=== PATIENT | female | born 1940 | race Caucasian/White ===

== ENCOUNTER 2025-06-05 12:53 | Emergency (ER) | payer OTHER, MEDICARE ==
[2025-06-05] MEDS ORDERED: KETOROLAC 30 MG/ML INJ ONE (13:29)
[2025-06-05] MEDS ORDERED: HYDROCODONE/APAP 5/325 MG TAB ONE (13:30)
--- NOTE | 2025-06-05 15:15 | RAD REPORT ---
EXAM: Knee Left 3 View INDICATION: PAIN COMPARISON: None FINDINGS: Possible nondisplaced patellar fracture. Left knee arthroplasty. No significant knee effusion. No significant focal degenerative changes. Other: N/A IMPRESSION: Possible nondisplaced mid patellar fracture. Correlate with mechanism of injury and site of pain. CT could confirm. Intact left knee arthroplasty. Prominent soft tissue swelling at the medial aspect of the knee. No significant knee effusion.
--- NOTE | 2025-06-05 15:16 | RAD REPORT ---
EXAMINATION: Forearm Left VIEWS: Three views CLINICAL INDICATION: Female, 84 years old. PAIN COMPARISON: No prior exam. IMPRESSION: Buckling along the radial neck concerning for an nondisplaced radial neck fracture. Plate and screw at the distal radius. No hardware application.
--- NOTE | 2025-06-05 15:17 | RAD REPORT ---
EXAM: Chest Single View HISTORY: 84 years Female PAIN COMPARISON: No prior exams FINDINGS: LUNGS/PLEURA: Left basilar airspace disease. CARDIAC/MEDIASTINUM: The cardiac silhouette is within normal limits. Moderate to large hiatal hernia. UPPER ABDOMEN: No significant abnormality. BONES: No acute abnormality. LINES/TUBES/OTHER: N/A IMPRESSION: Airspace disease at left lung base could reflect pneumonia or possibly atelectasis as a result of the moderate to large hiatal hernia.
--- NOTE | 2025-06-05 16:14 | ER ---
Nurse's Notes [facility] Name: Sil Jasso Age: 84 yrs Sex: Female : 1940 Arrival Date: 06/05/2025 Time: 12:53 Bed 6 Private MD: Diagnosis: Congenital hiatus hernia-Hiatal Hernia;Nondisplaced fracture of neck of left radius, initial encounter for closed fracture Presentation: 06/05 13:18 Chief complaint: Patient states: tripped and fell in the garage approximately 1hr ago, aa5 was unable to get up from the floor and called her family for help. Pt c/o skin tear to left FA and eduarda knee pain. Bruising noted to left knee and small laceration noted to right knee. No bleeding at this time. Denies head injury, denies LOC. 13:18 Coronavirus screen: At this time, the client does not indicate any symptoms associated aa5 with coronavirus-19. Ebola Screen:. Initial Sepsis Screen: Does the patient meet any 2 criteria? No. Patient's initial sepsis screen is negative. Does the patient have a suspected source of infection? No. Patient's initial sepsis screen is negative. Risk Assessment: Do you want to hurt yourself or someone else? Patient reports no desire to harm self or others. Onset of symptoms was June 05, 2025. 13:18 Method Of Arrival: Ambulatory aa5 13:18 Acuity: BONNIE 3 aa5 Historical: - Allergies: 13:21 PENICILLINS; aa5 - PMHx: 13:21 Asthma; Hypertensive disorder; Hypercholesterolemia; aa5 13:21 Thyroid disease; Osteoporosis; leg swelling; aa5 - PSHx: 13:21 eduarda knee replacement; aa5 - Immunization history:: Adult Immunizations unknown, Last tetanus immunization: unknown. - Infectious Disease History:: Denies. - Social history:: Smoking status: Patient denies any tobacco usage or history of. Screenin:22 [facility] ED Fall Risk Assessment (Adult) History of falling in the last 3 months, dd2 including since admission Yes- single mechanical fall (1 pt) Confusion or Disorientation No (0 pts) Intoxicated or Sedated No (0 pts) Impaired Gait No (0 pts) Mobility Assist Device Used No (0 pt) Altered Elimination No (0 pt) Score/Fall Risk Level 0 - 2 = Low Risk Oriented to surroundings, Maintained a safe environment, Educated pt \T\ family on fall prevention, incl call for assistance when getting out of bed, Assessed \T\ reinforced patient's understanding of fall precautions, Hourly rounding (assess needs \T\ fall precautionary measures) done. Abuse screen: Denies threats or abuse. Denies injuries from another. Nutritional screening: No deficits noted. Tuberculosis screening: No symptoms or risk factors identified. Assessment: 14:22 General: Appears in no apparent distress. uncomfortable, Behavior is calm, cooperative, dd2 appropriate for age. Pain: Complains of pain in palmar aspect of left wrist, dorsal aspect of left forearm, palmar aspect of left forearm and right knee and left leg and left knee Pain currently is 7 out of 10 on a pain scale. Neuro: No deficits noted. Level of Consciousness is awake, alert, obeys commands, Oriented to person, place, time, situation, Appropriate for age. Cardiovascular: No deficits noted. Respiratory: No deficits noted. GI: No deficits noted. No signs and/or symptoms were reported involving the gastrointestinal system. : No deficits noted. No signs and/or symptoms were reported regarding the genitourinary system. EENT: No deficits noted. No signs and/or symptoms were reported regarding the EENT system. Derm: Wound noted palmar aspect of left forearm, rt knee Reports pain that is 7 out of 10 on a pain scale. Derm: Bruising that is dark purple, on left knee. Musculoskeletal: Circulation, motion, and sensation intact. Range of motion: intact in all extremities, Reports pain in palmar aspect of left wrist, dorsal aspect of left forearm and right knee and left leg and left knee. Vital Signs: 13:18 BP 145 / 102; Pulse 86; Resp 19 S; Temp 98.2(O); Pulse Ox 96% on R/A; aa5 14:29 BP 144 / 78; Pulse 65; Resp 16; Pulse Ox 99% on R/A; dd2 16:53 BP 132 / 77; Pulse 66; Resp 16; Pulse Ox 99% on R/A; dd2 [place] Coma Score: 14:22 Eye Response: spontaneous(4). Motor Response: obeys commands(6). Verbal Response: dd2 oriented(5). Total: 15. ED Course: 13:00 Patient arrived in ED. ts1 13:05 Rusty Galicia FNP-C is [facility]. dr5 13:05 Ronal Robin MD is Attending Physician. dr5 13:18 Arm band placed on. aa5 13:21 Triage completed. aa5 14:22 Patient has correct armband on for positive identification. Bed in low position. Call dd2 light in reach. Side rails up X 1. Client placed on continuous cardiac and pulse oximetry monitoring. NIBP monitoring applied. Door closed. Noise minimized. Warm blanket given. Pillow given. Verbal reassurance given. 14:22 No provider procedures requiring assistance completed. Patient maintains SpO2 dd2 saturation greater than 95% on room air. 15:10 Knee Left 3 View XRAY In Process Unspecified. EDMS 15:10 Forearm Left XRAY In Process Unspecified. EDMS 15:10 Chest Single View XRAY In Process Unspecified. EDMS 16:12 Patient did not have IV access during this emergency room visit. Jose wrap to left knee dd2 Orthoglass splint: posterior long arm splint applied to the left arm. Wound care: to SKIN TEAR located on left arm was cleaned with with NS, dressed with 4X4s, Patient tolerated well. 16:53 Provided Education on: D/C EDUCATION. dd2 Administered Medications: 13:35 Drug: Ketorolac IM 30 mg IM once Route: IM; Site: right deltoid; aa5 14:00 Follow up: Response: No adverse reaction dd2 13:35 Drug: HYDROcodone-acetaminophen PO 5 mg-325 mg 2 tabs PO once Route: PO; aa5 14:00 Follow up: Response: No adverse reaction dd2 Medication: 16:53 VIS not applicable for this client. dd2 Outcome: 16:13 Discharge ordered by . dr5 16:53 Discharged to home via wheelchair, with family, dd2 16:53 Condition: improved 16:53 Discharge instructions given to patient, Instructed on discharge instructions, follow up and referral plans. medication usage, SPLINT CARE Demonstrated understanding of instructions, follow-up care, medications, splint care, Prescriptions given X 2, 16:57 Patient left the ED. dd2 Signatures: Dispatcher [employer] EDHoa Bray RN RN aa5 Shantelle Cruz PAS PAS ts1 ROSALINA MEZA RN RN dd2 Galicia, Rusty, LICENSED NURSING ASSISTANT-C LICENSED NURSING ASSISTANT-Cdr5
--- NOTE | 2025-06-05 16:14 | EDPHYS ---
Physician Documentation [facility] Name: Sil Jasso Age: 84 yrs Sex: Female : 1940 Arrival Date: 06/05/2025 Time: 12:53 Bed 6 Private MD: ED Physician oRnal Robin HPI: 06/05 13:49 This 84 yrs old Female presents to ER via Ambulatory with complaints of Fall dr5 Injury, Arm Injury, Knee Injury. 13:49 Details of fall: The patient fell from an upright position, while standing. Onset: The dr5 symptoms/episode began/occurred just prior to arrival. Patient is an 84-year-old female with history of asthma, hypertension, hyperlipidemia, thyroid disease, osteoporosis coming in with trip and fall that occurred in garage 1 hour prior to arrival. Patient reports that she fell on her left knee and also injured her left forearm. Patient denies hitting her head, denies dizziness, and denies loss of consciousness.. Historical: - Allergies: 13:21 PENICILLINS; aa5 - PMHx: 13:21 Asthma; Hypertensive disorder; Hypercholesterolemia; aa5 13:21 Thyroid disease; Osteoporosis; leg swelling; aa5 - PSHx: 13:21 eduarda knee replacement; aa5 - Immunization history:: Adult Immunizations unknown, Last tetanus immunization: unknown. - Infectious Disease History:: Denies. - Social history:: Smoking status: Patient denies any tobacco usage or history of. ROS: 13:49 Constitutional: as per hpi dr5 Exam: 13:49 Constitutional: This is a well developed, well nourished patient who is awake, alert, dr5 and in no acute distress. Head/Face: Normocephalic, atraumatic. Eyes: Pupils equal round and reactive to light, extra-ocular motions intact. Lids and lashes normal. Conjunctiva and sclera are non-icteric and not injected. Cornea within normal limits. Periorbital areas with no swelling, redness, or edema. Neck: Trachea midline, no thyromegaly or masses palpated, and no cervical lymphadenopathy. Supple, full range of motion without nuchal rigidity, or vertebral point tenderness. No Meningismus. Chest/axilla: Normal chest wall appearance and motion. Nontender with no deformity. No lesions are appreciated. Cardiovascular: Regular rate and rhythm with a normal S1 and S2. Normal PMI, no JVD. No pulse deficits. Respiratory: Lungs have equal breath sounds bilaterally, clear to auscultation. No rales, rhonchi or wheezes noted. No increased work of breathing, no retractions or nasal flaring. Back: No spinal tenderness. No costovertebral tenderness. Full range of motion. Skin: Warm, dry with normal turgor. Normal color with no rashes, no lesions, and no evidence of cellulitis. Patient has skin tears to right knee as well as posterior left forearm. Neuro: Awake and alert, GCS 15, oriented to person, place, time, and situation. Cranial nerves II-XII grossly intact. Motor strength 5/5 in all extremities. Sensory grossly intact. Cerebellar exam normal. Normal gait. 13:49 Musculoskeletal/extremity: Extremities: grossly normal except: noted in the left knee: swelling, tenderness, ROM: no acute changes, intact in all extremities, Circulation is intact in all extremities. Sensation intact. Vital Signs: 13:18 BP 145 / 102; Pulse 86; Resp 19 S; Temp 98.2(O); Pulse Ox 96% on R/A; aa5 14:29 BP 144 / 78; Pulse 65; Resp 16; Pulse Ox 99% on R/A; dd2 16:53 BP 132 / 77; Pulse 66; Resp 16; Pulse Ox 99% on R/A; dd2 [place] Coma Score: 14:22 Eye Response: spontaneous(4). Motor Response: obeys commands(6). Verbal Response: dd2 oriented(5). Total: 15. Procedures: 16:29 Splinting: Splint applied to left arm using Orthoglass splint, sling, Posterior Long dr5 Elbow. applied by tech. Examined by me, post splint application: neurovascular intact, 2+ distal pulses palpable, brisk capillary refill noted, Patient tolerated well. 16:29 Splinting: Splint applied to left knee using jose wrap, applied by tech. Examined by me, dr5 post splint application: neurovascular intact, 2+ distal pulses palpable, brisk capillary refill noted, Patient tolerated well. MDM: 13:05 Medical Screening Exam initiated dr5 16:29 Differential diagnosis: abrasion, contusion, fracture, sprain, strain. Data reviewed: dr5 vital signs, nurses notes, radiologic studies, plain films. Consideration of Admission/Observation Escalation of care including admission/observation considered. Escalation considered patient found to have infection.. I considered the following discharge prescriptions or medication management in the emergency department I discussed and recommended Over The Counter medications, Medications were administered in the Emergency Department. See MAR. Historians other than the Patient: Daughter/Son: Daughter. Care significantly affected by the following chronic conditions: Hypertension, hyperlipidemia, thyroid disease, osteoporosis, asthma. Care significantly affected by the following Social Determinants of Health: Poor access to healthcare and/or lack of insurance, Poor access to transportation, Problems related to employment. Counseling: I had a detailed discussion with the patient and/or guardian regarding the historical points, exam findings, and any diagnostic results supporting the discharge/admit diagnosis, the presence of at least one elevated blood pressure reading (>120/80) during this emergency department visit, radiology results, the need for outpatient follow up, for definitive care, a orthopedic surgeon, to return to the emergency department if symptoms worsen or persist or if there are any questions or concerns that arise at home. Medication response: Toradol markedly relieved the patient's pain, [place]. Response to treatment: the patient's symptoms have markedly improved after treatment. Special discussion: I have referred the patient to see his PCP for further evaluation of high blood pressure. I discussed with the patient/guardian in detail that at this point there is no indication for admission to the hospital. It is understood, however, that if the symptoms persist or worsen the patient needs to return immediately for re-evaluation. Based on the history and exam findings, there is no indication for further emergent testing or inpatient evaluation. I discussed with the patient/guardian the need to see the orthopedic surgeon for further evaluation of the symptoms. ED course: CD and x-ray reports printed and given to patient. Will give patient antibiotics for possible pneumonia, pain medicine for fracture. Patient reports she will see her orthopedic doctor in [place] on Saturday. All questions answered. Strict ER precautions given.. 06/05 13: Order name: Knee Left 3 View XRAY; Complete Time: 15:28 aa5 06/05 13:26 Order name: Forearm Left XRAY; Complete Time: 15:28 aa5 06/05 13:26 Order name: Chest Single View XRAY; Complete Time: 15:28 06/05 15:31 Order name: Jose Wrap; Complete Time: 16:12 dr5 06/05 15:31 Order name: Posterior Elbow Splint; Complete Time: 16:12 dr5 06/05 16:14 Order name: Sling; Complete Time: 16:19 dr5 Administered Medications: 13:35 Drug: Ketorolac IM 30 mg IM once Route: IM; Site: right deltoid; aa5 14:00 Follow up: Response: No adverse reaction dd2 13:35 Drug: HYDROcodone-acetaminophen PO 5 mg-325 mg 2 tabs PO once Route: PO; aa5 14:00 Follow up: Response: No adverse reaction dd2 Disposition: 17:23 Co-signature as Attending Physician, Ronal Robin MD I reviewed the patient's care rn provided by the Advanced Practice Provider and agree with the diagnosis and treatment plan. Disposition Summary: 06/05/25 16:13 Discharge Ordered Notes: Location: Home dr5 Condition: Stable dr5 Diagnosis - Congenital hiatus hernia - Hiatal Hernia dr5 - Nondisplaced fracture of neck of left radius, initial encounter for closed fracture dr5 Followup: dr5 - With: Emergency Department - When: As needed - Reason: Worsening of condition Followup: dr5 - With: Private Physician - When: 1 - 2 days - Reason: Recheck today's complaints, Continuance of care, Re-evaluation by your physician Discharge Instructions: - Discharge Summary Sheet dr5 - Cast or Splint Care, Adult dr5 - Radial Fracture dr5 Forms: - Medication Reconciliation Form dr5 - Antibiotic Education dr5 - Prescription Opioid Use dr5 - Patient Portal Instructions dr5 - Leadership Thank You Letter dr5 Prescriptions: - Zofran 4 mg Oral Tablet - take 1 tablet ORAL route every 12 hours As needed; 20 tablet; Refills: 0, dr5 Product Selection Permitted - Tramadol 50 mg Oral Tablet - take 1 tablet ORAL route every 8 hours as needed; 12 tablet; Refills: 0, dr5 Product Selection Permitted - Zithromax Z-Aki 250 mg Oral Tablet - take 1 tablet ORAL route as directed for 5 days Day 1 - take two (2) tablets dr5 one time. Day 2, 3, 4 , 5 take one (1) tablet once daily.; 6 tablet; Refills: 0, Product Selection Permitted Signatures: Dispatcher [employer] EDRonal Ross MD MD rn Calderon, Audri RN RN aa5 ROSALINA MEZA RN RN dd2 Rusty Galicia FNP-Elmer BARRONP-Cdr5 Corrections: (The following items were deleted from the chart) : 13: Forearm Left+RAD.RAD.BRZ ordered. EDMS EDMS 13: Chest Single View+RAD.RAD.BRZ ordered. EDMS EDMS
[2025-06-05 17:34] VITALS: TEMP 98.2
[2025-06-05 17:35] VITALS: O2SAT 99
[2025-06-05 17:36] VITALS: BP 132/77
== END 2025-06-05 16:57 | disposition home or self-care (01) ==
LOC: ER 12:53
PROC: 2W3BX1Z Immobilization of Left Upper Arm using Splint (ICD-10-PCS; principal; 2025-06-05)
DX: S52.135A Nondisplaced fracture of neck of left radius, initial encounter for closed fracture (principal); Q40.1 Congenital hiatus hernia; W01.0XXA Fall on same level from slipping, tripping and stumbling without subsequent striking against object, initial encounter
CPT/HCPCS: 71045; 96372; 99284